=== PATIENT | male | born 1970 | race Caucasian/White ===

== ENCOUNTER 2021-11-03 04:56 | Emergency (ER) | payer MEDICAID ==
[~2021-11-03] VITALS: Ht 167.6 cm; Wt 88.4 kg
[2021-11-03] MEDS ORDERED: ACETAMINOPHEN 325MG TABLET PO ONE (06:00)
[2021-11-03] MEDS ORDERED: LIDOCAINE 5% PATCH TOP SCH (06:00)
[2021-11-03] MEDS ORDERED: IBUPROFEN 400MG TABLET PO ONE (06:00)
[2021-11-03 06:13] LABS: BASOPHILS % 0.3 % (0.0-2.0); HEMATOCRIT. 33.4 % (42.0-52.0); HEMOGLOBIN. 10.6 g/dL (14.0-18.0); LYMPHOCYTES % 10.7 % (20.0-50.0); MEAN CORPUSCULAR HEMOGLOBIN 23.4 pg (28.0-32.0); MEAN CORPUSCULAR VOLUME 73.5 fL (80.0-94.0); MEAN PLATELET VOLUME 6.9 fl (7.4-10.4); PLATELET 325 x1000/uL (130-400); RED BLOOD CELL COUNT 4.55 mill/uL (4.7-6.1); RED CELL DISTRIBUTION WIDTH 17.5 % (11.6-14.6)
[2021-11-03 06:30] LABS: CHLORIDE 100 mEq/L (98-107)
[2021-11-03 07:06] LABS: INR 1.2; PROTHROMBIN TIME 12.6 sec (9.6-11.0)
[2021-11-03] MEDS ORDERED: LIDO1ADH23 TP (07:21)
[2021-11-03] MEDS ORDERED: AMOX1TAB16 MT (07:21)
[2021-11-03] MEDS ORDERED: IBUP-2028 MT (07:21)
[2021-11-03] MEDS ORDERED: AZIT250T MT (07:21)
[2021-11-03] MEDS ORDERED: TOPUD PO (07:21)
[2021-11-03] MEDS ORDERED: AZITHROMYCIN 500 MG TABLET PO ONE (07:30)
[2021-11-03] MEDS ORDERED: AMOXICILLIN/POTASSIUM CLAVULANATE 875/125MG TAB PO ONE (07:30)
[2021-11-03 07:43] VITALS: BP 167/123
== END 2021-11-03 07:29 | disposition home or self-care (01) ==
LOC: ER 04:56
DX: J18.9 Pneumonia, unspecified organism (principal); R07.89 Other chest pain; R06.02 Shortness of breath; Z79.899 Other long term (current) drug therapy
CPT/HCPCS: 36415; 71046; 80053; 83880; 84484; 85025; 93005; 99285